=== PATIENT | male | born 1960 ===

== ENCOUNTER 2023-09-09 06:34 | Day surgery (SDC) | payer OTHER ==
[2023-09-03 11:16] LABS: URINE APPEARANCE Clear; URINE BILIRRUBIN Negative (NEGATIVE); URINE BLOOD Negative; URINE COLOR Yellow; URINE GLUCOSE Negative (NEGATIVE); URINE LEUKOCYTE Negative; URINE NITRATE Negative; URINE PROTEIN Negative (NEGATIVE); URINE UROBILINOGEN 0.2 E.U./dl
[2023-09-03 11:20] LABS: HEMOGLOBIN 14.9 g/dL (13-16.00); MEAN CELL VOLUME 85.7 fL (80.0-100.00); MEAN CORPUSCULAR HEMOGLOBIN 30.3 pg (27.00-32.0); MEAN CORPUSCULAR HGB CONC 35.4 g/dl (32.0-36.0); PLATELET COUNT 205 K/uL (150-450); RED BLOOD COUNT 4.91 M/uL (4.00-6.00); RED CELL DISTRIBUTION WIDTH 13.4 % (11.5-14.5)
[2023-09-03 11:20] LABS: URINE RBC 6.8 uL (0.0-20.8)
[2023-09-03 11:34] LABS: URINE BACTERIA 2.5 uL (0.0-1933); URINE EPITHELIAL CELLS 0.6 uL (0.0-38.8)
[2023-09-03 11:48] LABS: ALBUMIN 3.8 gm/dL (3.4-5.0); BILIRUBIN TOTAL 0.8 mg/dL (0.3-1.2); CALCIUM 8.8 mg/dL (8.5-10.1); CREATININE SERUM 0.92 mg/dL (0.70-1.30); GFR 83.92; GLOBULINA 2.8 G/DL (2.4-3.5); POTASSIUM 4.15 mEq/L (3.5-5.1); TOTAL PROTEIN 6.6 gm/dL (6.4-8.2)
[2023-09-03 12:03] LABS: INR 1.1; PARTIAL THROMBOPLASTIN TIME 31.1 SECONDS (22.0-34.0); PROTHROMBIN TIME 11.5 SECONDS (9.0-11.5)
[2023-09-09] MEDS ORDERED: PERCOCET 5-3251 EACH PO (09:51)
[2023-09-09] MEDS ORDERED: MIRALAX510 GM PO (09:51)
[2023-09-09] MEDS ORDERED: TAMS0.4C PO (09:52)
[2023-09-09] MEDS ORDERED: NEURONTIN800 MG PO (09:52)
[2023-09-09] MEDS ORDERED: TYLENOL325 MG PO (09:52)
== END 2023-09-09 13:00 | disposition home or self-care (01) ==
LOC: CIR.AMB 06:34
PROVIDERS: ATTEND Surgery
DX: K40.90 Unilateral inguinal hernia, without obstruction or gangrene, not specified as recurrent (principal); K42.0 Umbilical hernia with obstruction, without gangrene; Z20.822 Contact with and (suspected) exposure to COVID-19; I10 Essential (primary) hypertension